=== PATIENT | female | born 1970 | race Caucasian/White ===

== ENCOUNTER 2020-09-20 21:13 | Emergency (ER) | payer MEDICAID ==
[~2020-09-20] VITALS: Ht 149.9 cm; Wt 79.8 kg
[2020-09-20 21:18] VITALS: BP_SYST 150
[2020-09-20] MEDS ORDERED: NAPR-1172 PO (23:25)
[2020-09-20 23:32] VITALS: BP_SYST 132
== END 2020-09-20 23:32 | disposition home or self-care (01) ==
LOC: SED 21:13
DX: M25.562 Pain in left knee (principal); Z79.899 Other long term (current) drug therapy; W18.39XA Other fall on same level, initial encounter; Y93.89 Activity, other specified; Y92.89 Other specified places as the place of occurrence of the external cause; Y99.8 Other external cause status
CPT/HCPCS: 73564; 99283